=== PATIENT | male | born 1965 | race Caucasian/White ===

== ENCOUNTER 2019-08-07 16:49 | Inpatient (IN) | payer BC ==
[~2019-08-07] VITALS: Ht 172.7 cm; Wt 82.6 kg
[2019-08-07] MEDS ORDERED: ACETAMINOPHEN 325MG TABLET PO STA (17:08)
[2019-08-07] MEDS ORDERED: CEFTRIAXONE 1 G PREMIX 50 ML IV ONE (17:15)
[2019-08-07] MEDS ORDERED: AZITHROMYCIN 500 MG in DEXT 5% WATER 250 ML IV ONE (17:15)
[2019-08-07 18:03] LABS: HEMATOCRIT. 45.5 % (42.0-52.0); MEAN CORPUSCULAR HEMOGLOBIN 30.9 pg (28.0-32.0); MEAN PLATELET VOLUME 9.7 fl (7.4-10.4); PLATELET 159 x1000/uL (130-400); RED BLOOD CELL COUNT 5.18 mill/uL (4.7-6.1); RED CELL DISTRIBUTION WIDTH 13.1 % (11.6-14.6)
[2019-08-07 18:09] LABS: CHLORIDE 95 mEq/L (98-107)
[2019-08-07 19:41] LABS: PLATELET ESTIMATE NORMAL
[2019-08-07] MEDS ORDERED: ALBUTEROL 6.7GM HFA INHALER ORI PRN (22:15)
[2019-08-07] MEDS ORDERED: ACETAMINOPHEN 325MG TABLET PO PRN (22:15)
[2019-08-07] MEDS ORDERED: MAGNESIUM/ALUMINUM HYDROXIDE/SIMETHICONE 30ML UDC PO PRN (22:15)
[2019-08-07] MEDS ORDERED: ONDANSETRON HCL 4MG/2ML INJ IV PRN (22:15)
[2019-08-07] MEDS ORDERED: DIPHENHYDRAMINE 50MG/ML VIAL IV PRN (22:15)
[2019-08-07] MEDS ORDERED: DEXTROSE 50% WATER 50ML SYRINGE IV PRN (22:30)
[2019-08-07] MEDS ORDERED: ENOXAPARIN 120MG/0.8ML SYR SUBCUT SCH (22:41)
[2019-08-07] MEDS ORDERED: ZOLPIDEM TARTRATE 5MG TABLET PO PRN (22:45)
[2019-08-07 23:05] VITALS: BP 126/75
[2019-08-07] MEDS ORDERED: GLIP10TA10 PO (23:57)
[2019-08-08] VITALS: BP 114/73
[2019-08-08 01:05] LABS: INR 1.1; PROTHROMBIN TIME 11.7 sec (9.6-11.0)
[2019-08-08 04:00] VITALS: BP 137/73
[2019-08-08] MEDS: SODIUM CHLORIDE 0.9% INJ 3ML FLUSH IVF SCH ×3 (05:33→21:33)
[2019-08-08 08:00] VITALS: BP 131/78
[2019-08-08] MEDS: AZITHROMYCIN 500 MG TABLET PO SCH (08:30)
[2019-08-08] MEDS: BLOOD SUGAR DIAGNOSTIC STRIP TEST SCH ×4 (08:30→21:25)
[2019-08-08] MEDS: GUAIFENESIN 600MG ER TABLET PO SCH ×2 (08:30→21:33)
[2019-08-08] MEDS: FAMOTIDINE 20MG TABLET PO SCH ×2 (08:30→21:33)
[2019-08-08] MEDS: INSULIN LISPRO 100 UNITS/ML SUBCUT SCH ×4 (08:31→21:34)
[2019-08-08] MEDS ORDERED: ENOXAPARIN 120MG/0.8ML SYR SUBCUT SCH (10:00)
[2019-08-08 12:00] VITALS: BP 129/76
[2019-08-08 16:00] VITALS: BP 148/84
[2019-08-08] MEDS: ACETAMINOPHEN 325MG TABLET PO PRN (17:33)
[2019-08-08] MEDS ORDERED: CEFTRIAXONE 1 G PREMIX 50 ML IV SCH (18:00)
[2019-08-08] MEDS: CEFTRIAXONE 1 G PREMIX 50 ML IV SCH (18:34)
[2019-08-08 20:00] VITALS: BP 124/69
[2019-08-08] MEDS: ENOXAPARIN 80MG/0.8ML SYR SUBCUT SCH (22:23)
[2019-08-09] VITALS: BP 118/70
[2019-08-09 04:00] VITALS: BP 144/70
[2019-08-09] MEDS: SODIUM CHLORIDE 0.9% INJ 3ML FLUSH IVF SCH ×3 (06:25→22:24)
[2019-08-09] MEDS: BLOOD SUGAR DIAGNOSTIC STRIP TEST SCH ×4 (06:56→21:00)
[2019-08-09 08:00] VITALS: BP 131/65
[2019-08-09] MEDS: ASCORBIC ACID 500 MG TABLET PO SCH ×2 (08:04→21:38)
[2019-08-09] MEDS: ZINC SULFATE 220 MG ( 50 ) CAPSULE PO SCH (08:04)
[2019-08-09] MEDS: FAMOTIDINE 20MG TABLET PO SCH ×2 (08:04→21:38)
[2019-08-09] MEDS: AZITHROMYCIN 500 MG TABLET PO SCH (08:04)
[2019-08-09] MEDS: GUAIFENESIN 600MG ER TABLET PO SCH ×2 (08:04→21:38)
[2019-08-09] MEDS: ENOXAPARIN 80MG/0.8ML SYR SUBCUT SCH ×2 (08:05→21:38)
[2019-08-09] MEDS: INSULIN LISPRO 100 UNITS/ML SUBCUT SCH ×4 (08:06→22:24)
[2019-08-09 12:00] VITALS: BP 154/80
[2019-08-09 16:00] VITALS: BP 153/85
[2019-08-09] MEDS: BENZONATATE 100MG CAPSULE PO SCH (17:53)
[2019-08-09] MEDS: CEFTRIAXONE 1 G PREMIX 50 ML IV SCH (17:56)
[2019-08-09 20:00] VITALS: BP 156/84
[2019-08-09] MEDS ORDERED: REMDESIVIR 200 MG in SODIUM CHLORIDE 0.9% 250 ML IV NR (21:00)
[2019-08-09] MEDS ORDERED: INSULIN GLARGINE UD 100 UNITS/ML SYR SUBCUT SCH (22:00)
[2019-08-10 00:09] VITALS: BP 142/88
[2019-08-10] MEDS: BENZONATATE 100MG CAPSULE PO SCH ×3 (01:41→17:35)
[2019-08-10 04:00] VITALS: BP 150/87
[2019-08-10] MEDS: SODIUM CHLORIDE 0.9% INJ 3ML FLUSH IVF SCH ×3 (06:15→22:18)
[2019-08-10] MEDS: BLOOD SUGAR DIAGNOSTIC STRIP TEST SCH ×4 (07:26→22:18)
[2019-08-10 08:00] VITALS: BP 99/57
[2019-08-10] MEDS: AZITHROMYCIN 500 MG TABLET PO SCH (08:41)
[2019-08-10] MEDS: GUAIFENESIN 600MG ER TABLET PO SCH ×2 (08:41→22:17)
[2019-08-10] MEDS: ASCORBIC ACID 500 MG TABLET PO SCH ×2 (08:41→22:18)
[2019-08-10] MEDS: ZINC SULFATE 220 MG ( 50 ) CAPSULE PO SCH (08:41)
[2019-08-10] MEDS: ENOXAPARIN 80MG/0.8ML SYR SUBCUT SCH ×2 (08:41→22:20)
[2019-08-10] MEDS: FAMOTIDINE 20MG TABLET PO SCH ×2 (08:41→22:17)
[2019-08-10] MEDS: INSULIN LISPRO 100 UNITS/ML SUBCUT SCH ×4 (08:42→22:24)
[2019-08-10 12:00] VITALS: BP 142/83
[2019-08-10 12:43] LABS: BASOPHILS % 0.8 % (0.0-2.0); EOSINOPHILS % 0.1 % (0.0-5.0); HEMATOCRIT. 45.3 % (42.0-52.0); HEMOGLOBIN. 15.8 g/dL (14.0-18.0); MEAN CORPUSCULAR HEMOGLOBIN 30.5 pg (28.0-32.0); MEAN CORPUSCULAR VOLUME 87.5 fL (80.0-94.0); MONOCYTES % 6.4 % (2.0-8.0); NEUTROPHILS % 84.7 % (40.0-76.0); PLATELET 245 x1000/uL (130-400); RED BLOOD CELL COUNT 5.17 mill/uL (4.7-6.1); RED CELL DISTRIBUTION WIDTH 13.4 % (11.6-14.6)
[2019-08-10 12:52] LABS: CHLORIDE 98 mEq/L (98-107)
[2019-08-10] MEDS: INSULIN GLARGINE UD 100 UNITS/ML SYR SUBCUT SCH ×2 (13:13→22:24)
[2019-08-10 16:00] VITALS: BP 137/77
[2019-08-10] MEDS: CEFTRIAXONE 1 G PREMIX 50 ML IV SCH (17:41)
[2019-08-10 20:00] VITALS: BP 156/80
[2019-08-11] VITALS: BP 135/84
[2019-08-11] MEDS: REMDESIVIR 100 MG in SODIUM CHLORIDE 0.9% 250 ML IV SCH ×2 (00:10→22:08)
[2019-08-11] MEDS ORDERED: POTASSIUM CHLORIDE 20MEQ TABLET SR PO SCH (00:45)
[2019-08-11] MEDS: BENZONATATE 100MG CAPSULE PO SCH ×3 (01:17→17:51)
[2019-08-11 04:00] VITALS: BP 137/80
[2019-08-11] MEDS: SODIUM CHLORIDE 0.9% INJ 3ML FLUSH IVF SCH ×3 (06:10→22:12)
[2019-08-11] MEDS: BLOOD SUGAR DIAGNOSTIC STRIP TEST SCH ×4 (06:10→21:00)
[2019-08-11 07:43] LABS: CHLORIDE 98 mEq/L (98-107)
[2019-08-11 08:00] VITALS: BP 159/83
[2019-08-11] MEDS: INSULIN LISPRO 100 UNITS/ML SUBCUT SCH ×4 (08:01→22:10)
[2019-08-11] MEDS: ASCORBIC ACID 500 MG TABLET PO SCH ×2 (09:43→22:07)
[2019-08-11] MEDS: AZITHROMYCIN 500 MG TABLET PO SCH (09:43)
[2019-08-11] MEDS: ZINC SULFATE 220 MG ( 50 ) CAPSULE PO SCH (09:43)
[2019-08-11] MEDS: ENOXAPARIN 80MG/0.8ML SYR SUBCUT SCH ×2 (09:43→22:08)
[2019-08-11] MEDS: FAMOTIDINE 20MG TABLET PO SCH ×2 (09:43→22:07)
[2019-08-11] MEDS: GUAIFENESIN 600MG ER TABLET PO SCH ×2 (09:46→22:07)
[2019-08-11] MEDS: INSULIN GLARGINE UD 100 UNITS/ML SYR SUBCUT SCH ×2 (10:19→22:10)
[2019-08-11 12:00] VITALS: BP 137/78
[2019-08-11] MEDS ORDERED: POTASSIUM CHLORIDE 20MEQ TABLET SR PO NR (13:15)
[2019-08-11] MEDS: ACETAMINOPHEN 325MG TABLET PO PRN ×2 (13:59→22:35)
[2019-08-11 16:00] VITALS: BP 127/78
[2019-08-11] MEDS: CEFTRIAXONE 1 G PREMIX 50 ML IV SCH (18:34)
[2019-08-11 20:00] VITALS: BP 121/75
[2019-08-12] VITALS: BP 139/78
[2019-08-12] MEDS: BENZONATATE 100MG CAPSULE PO SCH ×3 (01:27→17:30)
[2019-08-12 04:00] VITALS: BP 129/76
[2019-08-12 06:10] LABS: CHLORIDE 101 mEq/L (98-107)
[2019-08-12 06:27] LABS: BASOPHILS % 0.5 % (0.0-2.0); EOSINOPHILS % 2.5 % (0.0-5.0); HEMATOCRIT. 43.7 % (42.0-52.0); HEMOGLOBIN. 14.9 g/dL (14.0-18.0); LYMPHOCYTES % 12.8 % (20.0-50.0); MEAN CORPUSCULAR HEMOGLOBIN 30.4 pg (28.0-32.0); MEAN PLATELET VOLUME 9.2 fl (7.4-10.4); MONOCYTES % 6.6 % (2.0-8.0); NEUTROPHILS % 77.6 % (40.0-76.0); PLATELET 301 x1000/uL (130-400); RED BLOOD CELL COUNT 4.92 mill/uL (4.7-6.1); RED CELL DISTRIBUTION WIDTH 13.3 % (11.6-14.6)
[2019-08-12] MEDS: SODIUM CHLORIDE 0.9% INJ 3ML FLUSH IVF SCH ×2 (06:32→14:00)
[2019-08-12] MEDS: BLOOD SUGAR DIAGNOSTIC STRIP TEST SCH ×4 (07:23→21:00)
[2019-08-12] MEDS: INSULIN LISPRO 100 UNITS/ML SUBCUT SCH ×3 (07:23→17:31)
[2019-08-12 08:00] VITALS: BP 112/73
[2019-08-12] MEDS: FAMOTIDINE 20MG TABLET PO SCH (10:15)
[2019-08-12] MEDS: INSULIN GLARGINE UD 100 UNITS/ML SYR SUBCUT SCH (10:15)
[2019-08-12] MEDS: GUAIFENESIN 600MG ER TABLET PO SCH (10:16)
[2019-08-12] MEDS: AZITHROMYCIN 500 MG TABLET PO SCH (10:16)
[2019-08-12] MEDS: ZINC SULFATE 220 MG ( 50 ) CAPSULE PO SCH (10:16)
[2019-08-12] MEDS: ASCORBIC ACID 500 MG TABLET PO SCH (10:16)
[2019-08-12] MEDS: ENOXAPARIN 80MG/0.8ML SYR SUBCUT SCH (10:17)
[2019-08-12 12:00] VITALS: BP 128/75
[2019-08-12] MEDS ORDERED: POTASSIUM CHLORIDE 20MEQ TABLET SR PO NR (13:00)
[2019-08-12 16:00] VITALS: BP 132/79
[2019-08-12] MEDS: ACETAMINOPHEN 325MG TABLET PO PRN (17:30)
[2019-08-12] MEDS: CEFTRIAXONE 1 G PREMIX 50 ML IV SCH (17:30)
[2019-08-12 20:00] VITALS: BP 114/69
[2019-08-13] VITALS: BP 136/76
[2019-08-13] MEDS: ENOXAPARIN 80MG/0.8ML SYR SUBCUT SCH ×3 (00:26→22:02)
[2019-08-13] MEDS: ACETAMINOPHEN 325MG TABLET PO PRN (00:27)
[2019-08-13] MEDS: ASCORBIC ACID 500 MG TABLET PO SCH ×3 (00:27→22:01)
[2019-08-13] MEDS: GUAIFENESIN 600MG ER TABLET PO SCH ×3 (00:27→22:01)
[2019-08-13] MEDS: FAMOTIDINE 20MG TABLET PO SCH ×3 (00:27→22:02)
[2019-08-13] MEDS: REMDESIVIR 100 MG in SODIUM CHLORIDE 0.9% 250 ML IV SCH ×2 (00:28→22:02)
[2019-08-13] MEDS: INSULIN LISPRO 100 UNITS/ML SUBCUT SCH ×5 (00:29→22:03)
[2019-08-13] MEDS: INSULIN GLARGINE UD 100 UNITS/ML SYR SUBCUT SCH ×3 (00:30→22:04)
[2019-08-13] MEDS: BENZONATATE 100MG CAPSULE PO SCH ×3 (02:38→17:37)
[2019-08-13] MEDS: SODIUM CHLORIDE 0.9% INJ 3ML FLUSH IVF SCH ×4 (02:39→22:05)
[2019-08-13 04:00] VITALS: BP 118/74
[2019-08-13 08:00] VITALS: BP 123/72
[2019-08-13] MEDS: BLOOD SUGAR DIAGNOSTIC STRIP TEST SCH ×4 (08:04→21:00)
[2019-08-13] MEDS: ZINC SULFATE 220 MG ( 50 ) CAPSULE PO SCH (08:40)
[2019-08-13] MEDS: AZITHROMYCIN 500 MG TABLET PO SCH (08:40)
[2019-08-13 12:00] VITALS: BP 125/75
[2019-08-13] MEDS ORDERED: LORAZEPAM 2MG/ML CPJ IV PRN (15:15)
[2019-08-13] MEDS ORDERED: DIPHENHYDRAMINE 50MG/ML VIAL IV PRN (15:15)
[2019-08-13] MEDS ORDERED: MORPHINE SULFATE 2 MG/ML CPJ (NOT FOR IM USE) IV PRN (15:15)
[2019-08-13 16:00] VITALS: BP 146/84
[2019-08-13 16:17] LABS: BG BASE EXCESS 1.3 mmol/L (-2.0-2.0); BG CARBOXYHEMOGLOBIN 0.2 % (0.5-1.5); BG DEOXYHEMOGLOBIN 9.6 % (0.0-5.0); BG FRACTION INSPIRED OXYGEN 21; BG HCO3 ACT 23.7 mmol/L (22.0-26.0); BG METHEMOGLOBIN 0.3 % (0.0-1.5); BG OXYGEN SATURATION 90.4 % (92.0-98.5); BG OXYHEMOGLOBIN 89.9 % (94.0-97.0); BG PCO2 31.4 mmHg (35.0-45.0); BG PH 7.495 (7.350-7.450); BG PO2 49.4 mmHg (75.0-100.0); BG SAMPLE SITE RIGHT RADIAL; BG TOTAL HEMOGLOBIN 14.8 g/dL (12.0-18.0); BG VENT MODE ROOM AIR
[2019-08-13] MEDS: METHYLPREDNISOLONE SOD SUCC 40 MG/ML VIAL IV SCH (16:45)
[2019-08-13 17:01] LABS: BASOPHILS % 0.8 % (0.0-2.0); EOSINOPHILS % 2.3 % (0.0-5.0); HEMOGLOBIN. 14.4 g/dL (14.0-18.0); LYMPHOCYTES % 9.9 % (20.0-50.0); MEAN CORPUSCULAR HEMOGLOBIN 30.5 pg (28.0-32.0); MEAN CORPUSCULAR VOLUME 88.9 fL (80.0-94.0); MEAN PLATELET VOLUME 8.5 fl (7.4-10.4); MONOCYTES % 5.8 % (2.0-8.0); NEUTROPHILS % 81.2 % (40.0-76.0); PLATELET 341 x1000/uL (130-400); RED BLOOD CELL COUNT 4.72 mill/uL (4.7-6.1); RED CELL DISTRIBUTION WIDTH 13.6 % (11.6-14.6)
[2019-08-13 17:14] LABS: CHLORIDE 100 mEq/L (98-107)
[2019-08-13 17:21] LABS: PHOSPHORUS 2.5 mg/dL (2.5-4.9)
[2019-08-13 17:22] LABS: LDL CHOLESTEROL 33 mg/dL (5-100)
[2019-08-13 17:23] LABS: HDL CHOLESTEROL 15 mg/dL (40-59)
[2019-08-13 17:27] LABS: T4 FREE 1.47 ng/dL (0.76-1.46)
[2019-08-13] MEDS: LEVOFLOXACIN 500MG PREMIX 100 ML IV SCH (17:38)
[2019-08-13 20:00] VITALS: BP 160/74
[2019-08-14] VITALS: BP 102/54
[2019-08-14] MEDS: BENZONATATE 100MG CAPSULE PO SCH ×3 (02:19→18:06)
[2019-08-14] MEDS: METHYLPREDNISOLONE SOD SUCC 40 MG/ML VIAL IV SCH ×3 (02:19→16:10)
[2019-08-14 04:00] VITALS: BP 129/52
[2019-08-14] MEDS: BLOOD SUGAR DIAGNOSTIC STRIP TEST SCH ×4 (07:40→21:35)
[2019-08-14 08:00] VITALS: BP 127/76
[2019-08-14] MEDS: FAMOTIDINE 20MG TABLET PO SCH ×2 (11:13→21:30)
[2019-08-14] MEDS: ZINC SULFATE 220 MG ( 50 ) CAPSULE PO SCH (11:13)
[2019-08-14] MEDS: GUAIFENESIN 600MG ER TABLET PO SCH ×2 (11:13→21:30)
[2019-08-14] MEDS: ASCORBIC ACID 500 MG TABLET PO SCH ×2 (11:13→21:30)
[2019-08-14] MEDS: ENOXAPARIN 80MG/0.8ML SYR SUBCUT SCH ×2 (11:14→21:30)
[2019-08-14] MEDS: INSULIN LISPRO 100 UNITS/ML SUBCUT SCH ×4 (11:15→21:34)
[2019-08-14] MEDS: INSULIN GLARGINE UD 100 UNITS/ML SYR SUBCUT SCH ×2 (12:29→21:34)
[2019-08-14 16:00] VITALS: BP 117/77
[2019-08-14] MEDS: LEVOFLOXACIN 500MG PREMIX 100 ML IV SCH (16:10)
[2019-08-14] MEDS: SODIUM CHLORIDE 0.9% INJ 3ML FLUSH IVF SCH ×2 (16:11→21:35)
[2019-08-14 20:00] VITALS: BP 121/75
[2019-08-15] VITALS: BP 116/73
[2019-08-15] MEDS: METHYLPREDNISOLONE SOD SUCC 40 MG/ML VIAL IV SCH ×3 (00:34→17:53)
[2019-08-15 04:00] VITALS: BP 138/78
[2019-08-15] MEDS: SODIUM CHLORIDE 0.9% INJ 3ML FLUSH IVF SCH ×3 (05:14→21:43)
[2019-08-15] MEDS: BLOOD SUGAR DIAGNOSTIC STRIP TEST SCH ×4 (06:41→21:43)
[2019-08-15] MEDS: INSULIN LISPRO 100 UNITS/ML SUBCUT SCH ×5 (07:35→21:42)
[2019-08-15 08:00] VITALS: BP 136/76
[2019-08-15] MEDS: ENOXAPARIN 80MG/0.8ML SYR SUBCUT SCH ×2 (08:29→21:02)
[2019-08-15] MEDS: GUAIFENESIN 600MG ER TABLET PO SCH ×2 (08:29→21:01)
[2019-08-15] MEDS: FAMOTIDINE 20MG TABLET PO SCH ×2 (08:29→21:01)
[2019-08-15] MEDS: ZINC SULFATE 220 MG ( 50 ) CAPSULE PO SCH (08:29)
[2019-08-15] MEDS: ASCORBIC ACID 500 MG TABLET PO SCH ×2 (08:30→21:01)
[2019-08-15 09:59] LABS: BG BASE EXCESS 0.2 mmol/L (-2.0-2.0); BG CARBOXYHEMOGLOBIN 0.4 % (0.5-1.5); BG DEOXYHEMOGLOBIN 2.5 % (0.0-5.0); BG FRACTION INSPIRED OXYGEN 100; BG OXYGEN SATURATION 97.5 % (92.0-98.5); BG OXYHEMOGLOBIN 97.1 % (94.0-97.0); BG PCO2 32.1 mmHg (35.0-45.0); BG PH 7.473 (7.350-7.450); BG PO2 98.7 mmHg (75.0-100.0); BG SAMPLE SITE RIGHT BRACHIAL; BG TOTAL HEMOGLOBIN 14.6 g/dL (12.0-18.0); BG VENT MODE MASK - NRB
[2019-08-15] MEDS: LEVOFLOXACIN 500MG TABLET PO SCH (10:45)
[2019-08-15] MEDS: INSULIN GLARGINE UD 100 UNITS/ML SYR SUBCUT SCH ×2 (11:20→21:51)
[2019-08-15 12:00] VITALS: BP 104/67
[2019-08-15 16:00] VITALS: BP 126/64
[2019-08-15 20:00] VITALS: BP 140/72
[2019-08-16] MEDS: METHYLPREDNISOLONE SOD SUCC 40 MG/ML VIAL IV SCH ×3 (00:27→16:01)
[2019-08-16 04:00] VITALS: BP 138/71
[2019-08-16 06:20] LABS: HEMATOCRIT 41.6 % (42.0-52.0); HEMOGLOBIN 14.2 g/dL (14.0-18.0); MEAN CORPUSCULAR HEMOGLOBIN 30.4 pg (28.0-32.0); MEAN CORPUSCULAR VOLUME 89.2 fL (80.0-94.0); PLATELET 398 x1000/uL (130-400); RED BLOOD CELL COUNT 4.66 mill/uL (4.7-6.1); RED CELL DISTRIBUTION WIDTH 13.6 % (11.6-14.6)
[2019-08-16 06:28] LABS: CHLORIDE 108 mEq/L (98-107)
[2019-08-16] MEDS: SODIUM CHLORIDE 0.9% INJ 3ML FLUSH IVF SCH ×3 (06:39→21:14)
[2019-08-16] MEDS: BLOOD SUGAR DIAGNOSTIC STRIP TEST SCH ×4 (06:40→21:15)
[2019-08-16] MEDS: INSULIN LISPRO 100 UNITS/ML SUBCUT SCH ×5 (07:17→21:27)
[2019-08-16 07:33] VITALS: BP 117/71
[2019-08-16] MEDS: FAMOTIDINE 20MG TABLET PO SCH ×2 (08:58→21:13)
[2019-08-16] MEDS: ZINC SULFATE 220 MG ( 50 ) CAPSULE PO SCH (08:58)
[2019-08-16] MEDS: GUAIFENESIN 600MG ER TABLET PO SCH ×2 (08:58→21:13)
[2019-08-16] MEDS: ASCORBIC ACID 500 MG TABLET PO SCH ×2 (08:59→21:13)
[2019-08-16] MEDS: ENOXAPARIN 80MG/0.8ML SYR SUBCUT SCH ×2 (09:00→21:14)
[2019-08-16] MEDS: INSULIN GLARGINE UD 100 UNITS/ML SYR SUBCUT SCH ×2 (09:15→21:27)
[2019-08-16] MEDS: LEVOFLOXACIN 500MG TABLET PO SCH (11:18)
[2019-08-16 11:34] VITALS: BP 124/73
[2019-08-16 14:20] LABS: CLARITY URINE CLEAR (CLEAR); COLOR URINE YELLOW (YELLOW); KETONES URINE NEGATIVE (NEGATIVE); LEUKOCYTE ESTERASE URINE NEGATIVE (NEGATIVE); NITRITE URINE NEGATIVE (NEGATIVE); OCCULT BLOOD URINE NEGATIVE (NEGATIVE); PH URINE 6.5 (4.5-8.0); PROTEIN URINE NEGATIVE (NEGATIVE); SPECIFIC GRAVITY URINE 1.025 (1.005-1.030)
[2019-08-16 14:49] LABS: BG BASE EXCESS -1.4 mmol/L (-2.0-2.0); BG CARBOXYHEMOGLOBIN 0.5 % (0.5-1.5); BG DEOXYHEMOGLOBIN 0.8 % (0.0-5.0); BG HCO3 ACT 21.4 mmol/L (22.0-26.0); BG METHEMOGLOBIN 0.2 % (0.0-1.5); BG OXYGEN SATURATION 99.2 % (92.0-98.5); BG OXYHEMOGLOBIN 98.5 % (94.0-97.0); BG PCO2 30.9 mmHg (35.0-45.0); BG PH 7.458 (7.350-7.450); BG PO2 193.1 mmHg (75.0-100.0); BG SAMPLE SITE RIGHT RADIAL; BG TOTAL HEMOGLOBIN 14.5 g/dL (12.0-18.0); BG VENT MODE NASAL CANNULA
[2019-08-16 15:46] VITALS: BP 124/70
[2019-08-16 20:00] VITALS: BP 123/68
[2019-08-17] VITALS: BP 119/68
[2019-08-17 04:00] VITALS: BP 120/59
[2019-08-17] MEDS: METHYLPREDNISOLONE SOD SUCC 40 MG/ML VIAL IV SCH ×3 (04:35→16:47)
[2019-08-17] MEDS: SODIUM CHLORIDE 0.9% INJ 3ML FLUSH IVF SCH ×3 (05:33→22:03)
[2019-08-17] MEDS: BLOOD SUGAR DIAGNOSTIC STRIP TEST SCH ×4 (06:21→21:51)
[2019-08-17 08:00] VITALS: BP 133/87
[2019-08-17] MEDS: INSULIN LISPRO 100 UNITS/ML SUBCUT SCH ×4 (08:10→22:05)
[2019-08-17] MEDS: GUAIFENESIN 600MG ER TABLET PO SCH ×2 (08:45→22:03)
[2019-08-17] MEDS: ZINC SULFATE 220 MG ( 50 ) CAPSULE PO SCH (08:45)
[2019-08-17] MEDS: ENOXAPARIN 80MG/0.8ML SYR SUBCUT SCH ×2 (08:45→22:04)
[2019-08-17] MEDS: FAMOTIDINE 20MG TABLET PO SCH ×2 (08:45→22:03)
[2019-08-17] MEDS: ASCORBIC ACID 500 MG TABLET PO SCH ×2 (08:45→22:03)
[2019-08-17] MEDS: INSULIN GLARGINE UD 100 UNITS/ML SYR SUBCUT SCH ×2 (10:00→22:05)
[2019-08-17 11:02] LABS: HEPATITIS B SURFACE ANTIGEN NEGATIVE
[2019-08-17] MEDS: LEVOFLOXACIN 500MG TABLET PO SCH (11:02)
[2019-08-17 11:31] LABS: HEPATITIS A AB IGM NEGATIVE (NEGATIVE)
[2019-08-17 12:00] VITALS: BP 120/64
[2019-08-17] MEDS ORDERED: INSULIN GLARGINE UD 100 UNITS/ML SYR SUBCUT NR (14:30)
[2019-08-17] MEDS ORDERED: P20 PO (14:42)
[2019-08-17] MEDS ORDERED: BLOO-1465 MT (14:42)
[2019-08-17] MEDS ORDERED: LANC1COM2 MC (14:42)
[2019-08-17] MEDS ORDERED: IPRA3AMP9 NEB (14:42)
[2019-08-17] MEDS ORDERED: GLIP10TA10 MT (14:42)
[2019-08-17] MEDS ORDERED: INSU100I28 SQ (14:42)
[2019-08-17 16:00] VITALS: BP 130/84
[2019-08-17 17:00] LABS: BG BASE EXCESS 1.9 mmol/L (-2.0-2.0); BG CARBOXYHEMOGLOBIN 0.4 % (0.5-1.5); BG DEOXYHEMOGLOBIN 5.1 % (0.0-5.0); BG FRACTION INSPIRED OXYGEN 21; BG HCO3 ACT 24.9 mmol/L (22.0-26.0); BG METHEMOGLOBIN 0.2 % (0.0-1.5); BG OXYGEN SATURATION 94.9 % (92.0-98.5); BG OXYHEMOGLOBIN 94.3 % (94.0-97.0); BG PCO2 34.5 mmHg (35.0-45.0); BG PH 7.477 (7.350-7.450); BG PO2 71.8 mmHg (75.0-100.0); BG SAMPLE SITE RIGHT RADIAL; BG TOTAL HEMOGLOBIN 14.9 g/dL (12.0-18.0); BG VENT MODE ROOM AIR
[2019-08-18] MEDS: METHYLPREDNISOLONE SOD SUCC 40 MG/ML VIAL IV SCH ×2 (06:44→16:44)
[2019-08-18] MEDS: SODIUM CHLORIDE 0.9% INJ 3ML FLUSH IVF SCH ×3 (06:45→21:52)
[2019-08-18] MEDS: BLOOD SUGAR DIAGNOSTIC STRIP TEST SCH ×4 (06:51→21:54)
[2019-08-18 08:00] VITALS: BP 126/77
[2019-08-18] MEDS: INSULIN LISPRO 100 UNITS/ML SUBCUT SCH ×4 (08:10→21:53)
[2019-08-18] MEDS: ZINC SULFATE 220 MG ( 50 ) CAPSULE PO SCH (09:13)
[2019-08-18] MEDS: FAMOTIDINE 20MG TABLET PO SCH ×2 (09:13→21:52)
[2019-08-18] MEDS: GUAIFENESIN 600MG ER TABLET PO SCH ×2 (09:13→21:52)
[2019-08-18] MEDS: ASCORBIC ACID 500 MG TABLET PO SCH ×2 (09:13→21:52)
[2019-08-18] MEDS: ENOXAPARIN 80MG/0.8ML SYR SUBCUT SCH ×2 (09:14→21:52)
[2019-08-18] MEDS: INSULIN GLARGINE UD 100 UNITS/ML SYR SUBCUT SCH ×2 (10:48→21:54)
[2019-08-18 12:00] VITALS: BP 115/67
[2019-08-18] MEDS ORDERED: HYDROCODONE/ACETAMINOPHEN 5/325MG TABLET PO PRN (15:45)
[2019-08-18 16:00] VITALS: BP 118/75
[2019-08-18 20:00] VITALS: BP 118/70
[2019-08-19] VITALS (7 sets, daily range): BP systolic 112–124; BP diastolic 68–74
[2019-08-19] MEDS: SODIUM CHLORIDE 0.9% INJ 3ML FLUSH IVF SCH ×2 (06:38→17:32)
[2019-08-19] MEDS: BLOOD SUGAR DIAGNOSTIC STRIP TEST SCH ×3 (06:38→17:40)
[2019-08-19] MEDS: METHYLPREDNISOLONE SOD SUCC 40 MG/ML VIAL IV SCH ×2 (06:38→17:31)
[2019-08-19] MEDS: FAMOTIDINE 20MG TABLET PO SCH (09:49)
[2019-08-19] MEDS: ASCORBIC ACID 500 MG TABLET PO SCH (09:50)
[2019-08-19] MEDS: ZINC SULFATE 220 MG ( 50 ) CAPSULE PO SCH (09:50)
[2019-08-19] MEDS: ENOXAPARIN 80MG/0.8ML SYR SUBCUT SCH (09:50)
[2019-08-19] MEDS: GUAIFENESIN 600MG ER TABLET PO SCH (09:50)
[2019-08-19] MEDS: INSULIN LISPRO 100 UNITS/ML SUBCUT SCH ×3 (09:51→17:32)
[2019-08-19 10:31] LABS: HEMATOCRIT 46.5 % (42.0-52.0); HEMOGLOBIN 15.7 g/dL (14.0-18.0); MEAN CORPUSCULAR HEMOGLOBIN 30.2 pg (28.0-32.0); MEAN CORPUSCULAR VOLUME 89.8 fL (80.0-94.0); PLATELET 325 x1000/uL (130-400); RED BLOOD CELL COUNT 5.18 mill/uL (4.7-6.1); RED CELL DISTRIBUTION WIDTH 13.6 % (11.6-14.6)
[2019-08-19 10:37] LABS: CHLORIDE 100 mEq/L (98-107)
[2019-08-19] MEDS: INSULIN GLARGINE UD 100 UNITS/ML SYR SUBCUT SCH (11:04)
== END 2019-08-19 21:25 | disposition home or self-care (01) | DRG 871 ==
LOC: ER 16:49 → EDBEDREQTM 19:21 → EDBEDREQSVC 19:21 → EDBEDREQ 19:21 → 7WST 19:55 → EDBEDREQTM 19:59 → EDBEDREQ 19:59 → ENRESERV 21:50
PROVIDERS: ADMIT Internal Medicine; ATTEND Internal Medicine
DX: A41.89 Other specified sepsis (principal); U07.1 COVID-19; J12.89 Other viral pneumonia; J96.01 Acute respiratory failure with hypoxia; E44.0 Moderate protein-calorie malnutrition; E87.1 Hypo-osmolality and hyponatremia; D68.59 Other primary thrombophilia; E87.8 Other disorders of electrolyte and fluid balance, not elsewhere classified; E11.65 Type 2 diabetes mellitus with hyperglycemia; E87.6 Hypokalemia; I10 Essential (primary) hypertension; K76.0 Fatty (change of) liver, not elsewhere classified; Z79.84 Long term (current) use of oral hypoglycemic drugs; Z79.899 Other long term (current) drug therapy; Z68.27 Body mass index [BMI] 27.0-27.9, adult
CPT/HCPCS: 36415; 36600; 71045; 76700; 80048; 80053; 80061; 80076; 81003; 82375; 82805; 82962; 83036; 83735; 83880; 84100; 84439; 84443; 84484; 85025; 85027; 85379; 86705; 86709; 86803; 86850; 86900; 87340; 93005; 96365; 99285; J0456; J0696; J1650; J1815; J1956; J2405; J2920; J7050; J7060; Q9957; U0003-CS